=== PATIENT | female | born 1940 | race Caucasian/White ===

== ENCOUNTER 2018-03-01 19:45 | Emergency (ER) | payer MEDICARE ==
[2018-03-01 20:15] VITALS: BP 170/69
--- NOTE | 2018-03-01 20:16 | UC ---
Hand/Wrist HPI - HPI Summary HPI Summary: 77 y/o female presents to the urgent care c/o left index finger laceration w/ a metal door this afternoon around 1400pm today at work. Pt reports she works in [employer] and she was doing an open house. She tried to open the lock and somehow she slide her finger and cut ir w/ a piece sticking out. She take warfarin and bleeding was stopped w/ a lot of pressure and band-aids. Pain is 3/ 10 and is able to move finger w/o any difficulty. She has mild swelling on the medial aspect of finger. Pt can't recall when was the last Tetanus vaccine. Pt denies fever, SOB, chest pain, abdominal pain, N/V/D. - History Of Current Complaint Stated Complaint: LEFT POINTER FINGER INJURY Time Seen by Provider: 03/01/18 20:13 Hx Obtained From: Patient ?: No - menopausal Onset/Duration: Sudden Onset, Lasting Hours - 6 hrs, Still Present Severity Initially: Moderate Severity Currently: Moderate Pain Intensity: 3 Pain Scale Used: 0-10 Numeric Character Of Pain: Sharp Aggravating Factor(s): Movement, Lifting, Other - touch Alleviating Factor(s): Rest, Compression Associated Signs And Symptoms: Positive: Swelling. Negative: Bruising, Weakness , Numbness/Tingling Related History: Dominant Hand Right - Allergies/Home Medications Allergies/Adverse Reactions: Allergies Allergy/AdvReac Type Severity Reaction Status Date / Time No Known Allergies Allergy Verified 03/01/18 20:15 Home Medications: Home Medications Warfarin TAB(*) [Coumadin TAB(*)] 1 mg PO DAILY 03/01/18 [History Confirmed ] PMH/Surg Hx/FS Hx/Imm Hx Previously Healthy: Yes Endocrine History: Dyslipidemia Cardiovascular History: Hypertension, Myocardial Infarction, Atrial Fibrillation - Surgical History Surgical History: Yes Surgery Procedure, Year, and Place: COMPLETE HYSTERECTOMY 2005, GALLSTONES REMOVED-2007. CHOLECYSTECTOMY. 2 HEART BOVINE VALVES REPLACED - 2014 ( [facility]) - Family History Known Family History: Positive: Hypertension - Social History Occupation: Employed Full-time Alcohol Use: None Substance Use Type: None Smoking Status (MU): Former Smoker When Did the Patient Quit Smoking/Using Tobacco: 1 month - Immunization History Most Recent Influenza Vaccination: 4421-8732 Hx Tetanus, Diphtheria Vaccination: No - she can't remember last dose Review of Systems Constitutional: Negative Skin: Other - left index finger laceration s/ a medal door at work Eyes: Negative ENT: Negative Respiratory: Negative Cardiovascular: Negative Gastrointestinal: Negative Genitourinary: Negative Motor: Negative Neurovascular: Negative Musculoskeletal: Other: - left index finger pain Neurological: Negative Psychological: Negative Is Patient Immunocompromised?: No All Other Systems Reviewed And Are Negative: Yes Physical Exam - Summary Physical Exam Summary: Vital Signs Reviewed: Yes General: well developed, well nourished female sitting in the examining table w/ o any apparent distress Eye Exam: Normal Eyes: Positive: Conjunctiva Clear - PERRLA, EOMI, fundi grossly normal ENT: Positive: Normal ENT inspection, Hearing grossly normal, Pharynx normal, TMs normal Neck: Positive: Supple, Nontender, No Lymphadenopathy Respiratory: Positive: Chest non-tender, Lungs clear, Normal breath sounds, No respiratory distress Cardiovascular: Positive: RRR, No Murmur, Pulses Normal, Brisk Capillary Refill Abdomen Description: Positive: Nontender, No Organomegaly, Soft. Negative: CVA Tenderness (R), CVA Tenderness (L) Bowel Sounds: Positive: Present Musculoskeletal: Positive: Strength Intact, ROM Intact, No Edema Neurological: Positive: Alert, Muscle Tone Normal Psychological Exam: Normal Skin: Positive: Medial aspect of the distal second phalanx with an irregular semilunar in shape superficial laceration about 3.5cm in size, bleeding, no foreign body observed. mild tenderness to palpation, mild swelling and ecchymosis observed. Also a small skin abrasion near the PJPJ, tender to palpation.FROM of LF phalanx, sensation intact, capillary refill brisk, and pulses WNL. Triage Information Reviewed: Yes Procedures - Laceration/Wound Repair 1 Location: upper extremity - left sencon phalanx medial aspect Description: Irregular - semilunar in shape about 3.5cm in size and abrasion about 0.4cm in size Anesthesia: Local, 1.0%, Lido Betadine Prep?: Yes Laceration/Wound Explored: clean, no foreign body removed Closure: Single Layer Debridement: minimal Suture Type: Nylon - 5.0 Number of Sutures: 8 Layer Closure?: No - epidermis Sterile Dressing Applied?: Yes Hand/Wrist Course/Dx - Course Course Of Treatment: 77 y/o female presents to the urgent care c/o left index finger laceration w/ a metal door this afternoon around 1400pm today at work. Pt reports she works in [employer] and she was doing an open house. She tried to open the lock and somehow she slide her finger and cut ir w/ a piece sticking out. She take warfarin and bleeding was stopped w/ a lot of pressure and band-aids. Pain is 3/10 and is able to move finger w/o any difficulty. She has mild swelling on the medial aspect of finger. Pt can't recall when was the last Tetanus vaccine. Pt denies fever, SOB, chest pain, abdominal pain, N/V/D. Hx obtained. Pt w/ Medial and palmar aspect of the distal second phalanx with an irregular, semilunar in shape, superficial laceration about 3.5cm in size, bleeding, no foreign body observed. mild tenderness to palpation, mild swelling and ecchymosis observed. Also a small skin abrasion at the PIJP on examination. X-ray of the left index ordered: Negative for fracture or dislocation.LACERATION PROCEDURE NOTE: Copious irrigation was done with saline and the wound explored. There was no FB or deep structure injury noted. Timeout performed with the nurse Danica. The procedure was explained and consent obtained. Digital block performed w/ 2ml of Lidocaine 1% . Good anesthesia obtained and neurovascular intact after procedure. Iodine applied around wound 3X. Sterile drape and prep were done There were 7 of sutures placed with 4.0 Nylon . The length of the wound after closure was 3.5m. No debridement done. Wound was covered with bacitracin and sterile non adherent dressing. The Pt tolerated the procedure well without adverse effects. Pt neurovascular intact. Pt advised if signs of infection develop like fever, redness, pain to return to the urgent care for further treatment. Otherwise f/u suture removal in 10-12 days.Pt's BP is elevated today advised to decrease salt in diet, monitor BP and f/u with PCP for further management. pt has not taking her BP medication today. Pt understood and agreed. Pt left the clinic ambulating. - Differential Dx/Diagnosis Differential Diagnosis/HQI/PQRI: Abrasion, Fracture, Other - laceration, tendon laceration Provider Diagnoses: 1- left 2nd distal phalanx laceration repair. 2- left second phlanx skin abrasion. 3-Uncontrolled HTN Discharge - Sign-Out/Discharge Documenting (check all that apply): Patient Departure - D/c home - Discharge Plan Condition: Stable Disposition: HOME Prescriptions: Bacitracin OINTMENT* 1 applic TOPICAL BID #1 tube Patient Education Materials: Care For Your Stitches (DC), Laceration (ED), Low- Sodium Diet (ED) Referrals: Simran Morrow [Primary Care Provider] - 1 Week Additional Instructions: 1-Please apply topical antibiotic over the wound. Keep wound clean and dry. 2- F/u suture removal in 10-12 days w/ your PCP or here at the urgent care. 3-Take Tylenol PO q6-8hrs prn for pain or swelling. 4- If you develop fever or redness around your finger please return to the Urgent care or your PCP for further evaluation and treatment 5-Your BP is elevated today. please decrease salt in your diet, monitor BP and if it continues to be elevated please f/u with your PCP for further management - Billing Disposition and Condition Condition: STABLE Disposition: Home
[2018-03-01] MEDS ORDERED: Tetan/Diph/Pertus SYR(Tdap)* 0.5 ML SYR(BOOSTRIX) use SYR IM ONE (20:32)
[2018-03-01] MEDS ORDERED: Lidocaine 1%* 5 ML VIAL INJ ONE (20:32)
--- NOTE | 2018-03-01 20:53 | RAD ---
INDICATION: Laceration to the left index finger COMPARISON: None. TECHNIQUE: 3 views of the left index finger were obtained. FINDINGS: Appearance is consistent with laceration overlying the palmar and radial aspect of the distal left index finger. The bones are normal alignment. Joint spaces appear maintained. No fracture is seen. IMPRESSION: APPEARANCES CONSISTENT WITH SOFT TISSUE LACERATION WITHOUT UNDERLYING FRACTURE OR DISLOCATION.
== END 2018-03-01 22:00 | disposition home or self-care (01) ==
LOC: UCCORT 19:45
DX: S61.211A Laceration without foreign body of left index finger without damage to nail, initial encounter (principal); W45.8XXA Other foreign body or object entering through skin, initial encounter; W22.8XXA Striking against or struck by other objects, initial encounter; Y93.9 Activity, unspecified; Y99.9 Unspecified external cause status; I48.91 Unspecified atrial fibrillation; Z79.01 Long term (current) use of anticoagulants; I10 Essential (primary) hypertension; E78.5 Hyperlipidemia, unspecified; I25.2 Old myocardial infarction
CPT/HCPCS: 12002; 73140; 90471; 90715; 99212; G0463

== ENCOUNTER 2018-03-04 10:32 | Emergency (ER) | payer MEDICARE ==
[2018-03-04 11:15] VITALS: BP 147/80
--- NOTE | 2018-03-04 11:42 | UC ---
HPI Wound/Suture Re-check - HPI Summary HPI Summary: here for wound check left index finger s/p laceration repair 3 days ago here for wound check and dressing changes no significant pain , no discharge, no bleeding - History Of Current Complaint Chief Complaint: UCSkin Stated Complaint: BANDAGE REMOVAL Time Seen by Provider: 03/04/18 11:26 Hx Obtained From: Patient Onset/Duration: Sudden Onset, Lasting Days - 3, Still Present Surgical Site: left index finger Severity: Moderate Pain Intensity: 3 Procedure Type: laceration repair Surgery Date: 03/01/18 - Allergies/Home Medications Allergies/Adverse Reactions: Allergies Allergy/AdvReac Type Severity Reaction Status Date / Time No Known Allergies Allergy Verified 03/04/18 11:11 Home Medications: Home Medications Aspirin 81 mg CHEW TAB* [Aspirin Low Dose TAB*] 81 mg PO DAILY 03/04/18 [ History Confirmed 03/04/18] PMH/Surg Hx/FS Hx/Imm Hx - Additional Past Medical History Additional PMH: uterine cancer Cardiovascular History: Hypertension - Surgical History Surgical History: Yes Surgery Procedure, Year, and Place: COMPLETE HYSTERECTOMY 2005, GALLSTONES REMOVED-2007. CHOLECYSTECTOMY. 2 HEART BOVINE VALVES REPLACED - 2014 ( [facility]) - Family History Known Family History: Positive: Hypertension - Social History Alcohol Use: None Substance Use Type: None Smoking Status (MU): Former Smoker When Did the Patient Quit Smoking/Using Tobacco: 1 month - Immunization History Most Recent Influenza Vaccination: [id number] Hx Tetanus, Diphtheria Vaccination: No - she can't remember last dose Review of Systems Constitutional: Negative Skin: Negative Eyes: Negative ENT: Negative Respiratory: Negative Cardiovascular: Negative Is Patient Immunocompromised?: No All Other Systems Reviewed And Are Negative: Yes Physical Exam Triage Information Reviewed: Yes Appearance: Well-Appearing, No Pain Distress, Well-Nourished Vital Signs: Initial Vital Signs Temp 97.9 F 03/04/18 11:09 Pulse 66 03/04/18 11:09 Resp 18 03/04/18 11:09 BP 147/80 03/04/18 11:09 Pulse Ox 99 03/04/18 11:09 Vital Signs Reviewed: Yes Eye Exam: Normal Eyes: Positive: Conjunctiva Clear ENT: Positive: Normal ENT inspection, Hearing grossly normal, Pharynx normal Neck exam: Normal Neck: Positive: Supple, Nontender, No Lymphadenopathy Respiratory: Positive: Chest non-tender, Lungs clear, Normal breath sounds Cardiovascular: Positive: RRR, No Murmur, Pulses Normal Skin: Positive: Other - wound check laceration left index finger laceration is healing well, sutures are intact, normal granulation tissue, no swelling, + moderate tenderness, good ROM on finger flexion and extension Course/Dx - Differential Dx - Laceration/Wound Provider Diagnoses: wound check. dressing change Discharge - Sign-Out/Discharge Documenting (check all that apply): Patient Departure - Discharge Plan Condition: Stable Disposition: HOME Patient Education Materials: Care For Your Stitches (ED) Referrals: Simran Morrow [Primary Care Provider] - 7 Days - Billing Disposition and Condition Condition: STABLE Disposition: Home
== END 2018-03-04 11:45 | disposition home or self-care (01) ==
LOC: UCCORT 10:32
DX: S61.211D Laceration without foreign body of left index finger without damage to nail, subsequent encounter (principal); X58.XXXD Exposure to other specified factors, subsequent encounter; I10 Essential (primary) hypertension; Z87.891 Personal history of nicotine dependence; Y92.9 Unspecified place or not applicable
CPT/HCPCS: 99211; G0463

== ENCOUNTER 2018-03-11 08:52 | Emergency (ER) | payer SELFPAY ==
[2018-03-11 09:11] VITALS: BP 160/65
--- NOTE | 2018-03-11 09:30 | UC ---
HPI Wound/Suture Re-check - HPI Summary HPI Summary: HERE FOR SUTURE REMOVAL LEFT INDEX FINGER SUTURES WERE PLACE HERE AT THE URGENT CARE 10 DAYS AGO NO REDNESS, HEALING WELL - History Of Current Complaint Chief Complaint: UCSkin Stated Complaint: SUTURE REMOVAL Time Seen by Provider: 03/11/18 09:16 Hx Obtained From: Patient Onset/Duration: Sudden Onset, Lasting Days - 10, Still Present Severity: Severe Pain Intensity: 0 Procedure Type: SUTURE REMOVAL LACERATION LEFT INDEX FINGER Surgery Date: 03/01/18 - Allergies/Home Medications Allergies/Adverse Reactions: Allergies Allergy/AdvReac Type Severity Reaction Status Date / Time No Known Allergies Allergy Verified 03/11/18 09:11 PMH/Surg Hx/FS Hx/Imm Hx Endocrine History: Diabetes Cardiovascular History: Hypertension - Surgical History Surgical History: Yes Surgery Procedure, Year, and Place: COMPLETE HYSTERECTOMY 2005, GALLSTONES REMOVED-2007. CHOLECYSTECTOMY. 2 HEART BOVINE VALVES REPLACED - 2014 ( [facility]) - Family History Known Family History: Positive: Hypertension - Social History Alcohol Use: None Substance Use Type: None Smoking Status (MU): Former Smoker When Did the Patient Quit Smoking/Using Tobacco: 1 month - Immunization History Most Recent Influenza Vaccination: [id number] Hx Tetanus, Diphtheria Vaccination: No - she can't remember last dose Review of Systems Constitutional: Negative Skin: Negative Eyes: Negative ENT: Negative Respiratory: Negative Is Patient Immunocompromised?: No All Other Systems Reviewed And Are Negative: Yes Physical Exam Triage Information Reviewed: Yes Appearance: Well-Appearing, No Pain Distress, Well-Nourished Vital Signs: Initial Vital Signs Temp 97.8 F 03/11/18 09:07 Pulse 73 03/11/18 09:07 Resp 16 03/11/18 09:07 BP 160/65 03/11/18 09:07 Pulse Ox 99 03/11/18 09:07 Vital Signs Reviewed: Yes Eye Exam: Normal Eyes: Positive: Conjunctiva Clear ENT: Positive: Normal ENT inspection, Hearing grossly normal, Pharynx normal Neck: Positive: Supple, Nontender, No Lymphadenopathy Respiratory: Positive: Chest non-tender, Lungs clear, Normal breath sounds Cardiovascular: Positive: RRR, No Murmur, Pulses Normal Skin Exam: Other - 3 CM LACERATION LEFT INDEX FINGER, HEALING WELL, 8 SUTURES INTACT SUTURES WERE REMOVE TODAY Course/Dx - Differential Dx - Laceration/Wound Provider Diagnoses: LACERATIO LEFT INDEX FINGER. SUTURE REMOVAL Discharge - Sign-Out/Discharge Documenting (check all that apply): Patient Departure - Discharge Plan Condition: Stable Disposition: HOME Patient Education Materials: Stitches Removal (ED) Referrals: Simran Morrow [Primary Care Provider] - 7 Days - Billing Disposition and Condition Condition: STABLE Disposition: Home
== END 2018-03-11 09:29 | disposition home or self-care (01) ==
LOC: UCCORT 08:52
DX: S61.211D Laceration without foreign body of left index finger without damage to nail, subsequent encounter (principal); X58.XXXD Exposure to other specified factors, subsequent encounter; Y92.9 Unspecified place or not applicable; Z87.891 Personal history of nicotine dependence